=== PATIENT | male | born 1970 | race Caucasian/White ===

== ENCOUNTER → 2017-12-09 | Outpatient (CLI) | payer SELFPAY ==
--- NOTE | 2017-12-09 14:50 | KCIC ---
EXAM: CHEST PA LATERAL DATE: 12/09/2017 12:00 AM INDICATION: Calcifications seen on prior chest radiograph COMPARISON: No Prior FINDINGS: The heart is not enlarged. Calcified mediastinal and hilar lymph nodes are seen. No focal parenchymal airspace opacity. No pleural effusion or pneumothorax. IMPRESSION: 1. No evidence of acute cardiopulmonary process. Electronically signed by: Omar Hansen MD (12/09/2017 2:47 PM) [id number]
== END | disposition home or self-care (01) ==
LOC: KCIC 10:30
PROVIDERS: ATTEND Chiropractor
DX: M95.4 Acquired deformity of chest and rib (principal)
CPT/HCPCS: 71046